=== PATIENT | male | born 1985 | race Caucasian/White ===

== ENCOUNTER 2019-06-11 09:12 | Day surgery (SDC) | payer OTHER ==
[~2019-06-11] VITALS: Ht 177.8 cm; Wt 72.6 kg
--- NOTE | 2019-06-11 10:30 | NUR ---
Patient confirms NPO status and agrees with scheduled surgery. History, Chart, Medications and Allergies reviewed before start of procedure.Lungs clear T/O to Auscultation. Pre-Op teaching done. Pt verbalizes understanding. Patient reports completing Chlorhexadine shower X2 prior to admission to hospital.Surgical site prepped with 2% Chlorhexidine cloth wipe.
--- NOTE | 2019-06-11 14:34 | NUR ---
Discharge instructions reviewed with patient. Patient verbalizes understanding. Copy given to patient to take home. Discharged via wheelchair to private car for ride home. PT STATED SATISFACTION OF CARE.
--- NOTE | 2019-06-14 10:29 | NUR ---
06/14/19 1029 Renae Ovalle VERIFICATIONS: EDIT CHART.
== END 2019-06-11 14:23 | disposition home or self-care (01) ==
LOC: ORSCMMR 09:12 → ORD 11:00 → ORSCMMR 14:23
PROVIDERS: Surgery
PROC: 0YU64JZ Supplement Left Inguinal Region with Synthetic Substitute, Percutaneous Endoscopic Approach (ICD-10-PCS; principal; 2019-06-11 11:00)
PROC: 8E0W4CZ Robotic Assisted Procedure of Trunk Region, Percutaneous Endoscopic Approach (ICD-10-PCS; principal; 2019-06-11 11:00)
PROC: 0YU84JZ Supplement Left Femoral Region with Synthetic Substitute, Percutaneous Endoscopic Approach (ICD-10-PCS; principal; 2019-06-11 11:00)
DX: K40.90 Unilateral inguinal hernia, without obstruction or gangrene, not specified as recurrent (principal); K41.90 Unilateral femoral hernia, without obstruction or gangrene, not specified as recurrent; F17.210 Nicotine dependence, cigarettes, uncomplicated
CPT/HCPCS: 49650; 49659; S2900; A9270-GY; C1781; J0690; J1100; J2250; J2405; J2704; J3010; J7120